=== PATIENT | female | born 1930 | race Caucasian/White ===

== ENCOUNTER 2016-07-13 06:50 | Inpatient (IN) | payer OTHER ==
[~2016-07-13] VITALS: Ht 160 cm; Wt 64.8 kg
[2016-07-13] VITALS (7 sets, daily range): BP systolic 84–121; BP diastolic 51–76
[~2016-07-13 06:50] MED LIST: ANUSOL-HC21 GM PR; ATORVASTATIN CA10 MG PO; CARVEDILOL6.25 MG PO; COLACE100 MG PO; ICAPS MULTIV1 TABLET PO; LISINOPRIL10 MG PO; LO-DOSE ASPIRIN81 M1 PO; MAALOX ADVANCE355 ML PO; MELOXICAM15 MG PO; METHYLPREDNISOLO4 MG PO; NITROSTAT0.4 MG SL; POLYETHYLENE G255 GM PO; stool softener PO
[2016-07-13 07:57] LABS: EOSINOPHIL (%) 0.2 % (0-5); HEMATOCRIT 35.6 % (36.0-46.0); IMMATURE GRANULOCYTE (%) 0.2 % (0.0-0.7); INSTRUMENT ABS NEUTROPHIL CT 8.2 K/uL; LYMPHOCYTE COUNT 1.1 K/uL (1.0-2.8); MCH 29.2 PG (29.0-34.0); MEAN PLAT.VOLUME 10.6 uM^3 (9.5-12.4); MONOCYTE (%) 2.1 % (3-12); MONOCYTE COUNT 0.2 K/uL (0-0.8); NEUTROPHIL (%) 85.8 % (45-76); NEUTROPHIL COUNT 8.2 K/uL (1.8-6.4); PLATELET COUNT 135 K/uL (156-360); RBC DIS.WIDTH-CV 14.2 % (11.8-14.6); RBC DIS.WIDTH-SD 47.3 % (39-53); RED BLOOD COUNT 3.91 M/uL (3.80-5.20)
[2016-07-13 08:00] LABS: WHITE BLOOD COUNT 9.6 K/uL (4.1-10.2)
[2016-07-13 08:11] LABS: ANION GAP 9 MEQ/L (2-14); CHLORIDE 104 MEQ/L (99-109); SAMPLE HEMOLYSIS CHECK 1; SAMPLE ICTERIC CHECK 0; SAMPLE LIPEMIA CHECK 0; SODIUM 139 MEQ/L (136-147); TOTAL BILIRUBIN 0.7 MG/DL (0.0-1.0)
[2016-07-13 08:13] LABS: POTASSIUM 4.6 MEQ/L (3.7-5.4)
[2016-07-13 08:16] LABS: ALKALINE PHOSPHATASE 50 IU/L (3-129); GFR ESTIMATE (CALCULATED) 45 mL/min/; GLUCOSE 161 mg/dL (70-99); LIPASE 26 U/L (1.0-51.0); UREA NITROGEN (BUN) 25 mg/dL (9-23)
[2016-07-13] MEDS ORDERED: COLACE100 MG PO (11:15)
[2016-07-13] MEDS ORDERED: FLUOROURACIL40 GM TP (11:16)
[2016-07-13] MEDS ORDERED: LISINOPRIL20 MG PO (11:17)
[2016-07-13 16:20] LABS: ADD MIUA? YES; BILIRUBIN NEGATIVE; BLOOD NEGATIVE; COLOR YELLOW ((YELLOW)); GLUCOSE (STRIP) >=500; KETONES 5; LEUKOCYTES NEGATIVE; NITRITE NEGATIVE; PROTEIN (STRIP) NEGATIVE; SPECIFIC GRAVITY 1.014 (1.000-1.030); UROBILINOGEN 0.2 MG/DL (0.2-1.0)
[2016-07-13 16:33] LABS: BACTERIA NONE SEEN /HPF; EPITHELIAL CELLS NONE SEEN /HPF; HYALINE CASTS 0-5 /LPF; MUCUS TRACE /LPF; RED BLOOD CELLS 0-5 /HPF (0-5); WHITE BLOOD CELLS 0-5 /HPF (0-5)
[2016-07-13 21:18] LABS: HEMATOCRIT 47.3 % (36.0-46.0)
[2016-07-13 21:29] LABS: MCV 95.2 FL (83-99)
[2016-07-14] VITALS (19 sets, daily range): BP systolic 81–148; BP diastolic 49–73
[2016-07-14 02:16] LABS: CHLORIDE 115 mEq/L (99-109); SODIUM 142 mEq/L (136-147)
[2016-07-14 02:19] LABS: ANION GAP 13 MEQ/L (2-14)
[2016-07-14 02:20] LABS: TOTAL BILIRUBIN 0.4 mg/dL (0.0-1.0)
[2016-07-14 02:22] LABS: ALKALINE PHOSPHATASE 43 IU/L (3-129); GFR ESTIMATE (CALCULATED) 41 mL/min/
[2016-07-14 02:23] LABS: UREA NITROGEN (BUN) 30 mg/dL (9-23)
[2016-07-14 02:24] LABS: EOSINOPHIL (%) 0 % (0-5); IMMATURE GRANULOCYTE (%) 0.9 % (0.0-0.7); IMMATURE GRANULOCYTE COUNT 0.2 K/uL; LYMPHOCYTE COUNT 1.4 K/uL (1.0-2.8); MCH 29.7 PG (29.0-34.0); MCHC 31.4 G/DL (30.0-36.0); MCV 94.6 FL (83-99); MEAN PLAT.VOLUME 11.3 uM^3 (9.5-12.4); MONOCYTE (%) 6.4 % (3-12); MONOCYTE COUNT 1.2 K/uL (0-0.8); NEUTROPHIL (%) 85.2 % (45-76); PLATELET COUNT 161 K/uL (156-360); RBC DIS.WIDTH-CV 14.6 % (11.8-14.6); RBC DIS.WIDTH-SD 50.4 % (39-53)
[2016-07-14 02:26] LABS: RED BLOOD COUNT 5.18 M/uL (3.80-5.20); WHITE BLOOD COUNT 18.8 K/uL (4.1-10.2)
[2016-07-14 02:28] LABS: GLUCOSE 275 mg/dL (70-99); POTASSIUM 5.6 mEq/L (3.7-5.4)
[2016-07-14 06:58] LABS: HEMATOCRIT 47.4 % (36.0-46.0); MCH 28.8 PG (29.0-34.0); MCHC 30.8 G/DL (30.0-36.0); MCV 93.5 FL (83-99); MEAN PLAT.VOLUME 10.8 uM^3 (9.5-12.4); PLATELET COUNT 184 K/uL (156-360); RBC DIS.WIDTH-CV 14.9 % (11.8-14.6); RBC DIS.WIDTH-SD 51.4 % (39-53); RED BLOOD COUNT 5.07 M/uL (3.80-5.20); WHITE BLOOD COUNT 20.1 K/uL (4.1-10.2)
[2016-07-14 07:42] LABS: ANION GAP 11 MEQ/L (2-14); GFR ESTIMATE (CALCULATED) 41 mL/min/; GLUCOSE 187 mg/dL (70-99); POTASSIUM 5.2 MEQ/L (3.7-5.4); SAMPLE HEMOLYSIS CHECK 0; SAMPLE ICTERIC CHECK 0; SAMPLE LIPEMIA CHECK 0; SODIUM 143 MEQ/L (136-147); UREA NITROGEN (BUN) 33 mg/dL (9-23)
[2016-07-14 07:44] LABS: CHLORIDE 118 MEQ/L (99-109)
[2016-07-15 03:37] VITALS: BP 115/50
[2016-07-15 07:27] VITALS: BP 114/55
[2016-07-15 07:35] LABS: HEMATOCRIT 33.8 % (36.0-46.0); MCH 29.2 PG (29.0-34.0); MCHC 31.1 G/DL (30.0-36.0); MCV 93.9 FL (83-99); RBC DIS.WIDTH-SD 51.6 % (39-53); WHITE BLOOD COUNT 13.2 K/uL (4.1-10.2)
[2016-07-15 07:53] LABS: ANION GAP 8 MEQ/L (2-14); CHLORIDE 120 MEQ/L (99-109); GFR ESTIMATE (CALCULATED) 45 mL/min/; GLUCOSE 110 mg/dL (70-99); MAGNESIUM 1.6 mg/dl (1.3-2.7); POTASSIUM 4.7 MEQ/L (3.7-5.4); SAMPLE HEMOLYSIS CHECK 0; SAMPLE ICTERIC CHECK 0; SAMPLE LIPEMIA CHECK 0; SODIUM 146 MEQ/L (136-147); UREA NITROGEN (BUN) 28 mg/dL (9-23)
[2016-07-15 09:59] LABS: MEAN PLAT.VOLUME 10.8 uM^3 (9.5-12.4)
[2016-07-15 10:17] LABS: PLATELET COUNT 96 K/uL (156-360)
[2016-07-15 11:12] VITALS: BP 123/52
[2016-07-15 19:00] VITALS: BP 121/57
[2016-07-15 23:20] VITALS: BP 127/60
[2016-07-16] VITALS (11 sets, daily range): BP systolic 124–152; BP diastolic 58–78
[2016-07-16 06:15] LABS: MCH 29.3 PG (29.0-34.0); MCHC 31.6 G/DL (30.0-36.0); MCV 92.6 FL (83-99); MEAN PLAT.VOLUME 10.9 uM^3 (9.5-12.4); PLATELET COUNT 68 K/uL (156-360); RBC DIS.WIDTH-SD 50.9 % (39-53)
[2016-07-16 06:18] LABS: ANION GAP 7 MEQ/L (2-14); CHLORIDE 118 MEQ/L (99-109); GFR ESTIMATE (CALCULATED) > 59 mL/min/; GLUCOSE 86 mg/dL (70-99); SAMPLE HEMOLYSIS CHECK 0; SAMPLE ICTERIC CHECK 0; SAMPLE LIPEMIA CHECK 0; SODIUM 146 MEQ/L (136-147); UREA NITROGEN (BUN) 18 mg/dL (9-23)
[2016-07-16 06:22] LABS: POTASSIUM 3.6 MEQ/L (3.7-5.4)
[2016-07-16 06:47] LABS: WHITE BLOOD COUNT 7.5 K/uL (4.1-10.2)
[2016-07-17 04:00] VITALS: BP 139/62
[2016-07-17 06:42] LABS: EOSINOPHIL (%) 0.8 % (0-5); EOSINOPHIL COUNT 0.1 K/uL (0-0.3); HEMATOCRIT 28.7 % (36.0-46.0); IMMATURE GRANULOCYTE (%) 0.6 % (0.0-0.7); INSTRUMENT ABS NEUTROPHIL CT 5.1 K/uL; LYMPHOCYTE COUNT 0.8 K/uL (1.0-2.8); MCH 29.2 PG (29.0-34.0); MCHC 32.1 G/DL (30.0-36.0); MCV 91.1 FL (83-99); MEAN PLAT.VOLUME 10.9 uM^3 (9.5-12.4); MONOCYTE (%) 5.7 % (3-12); MONOCYTE COUNT 0.4 K/uL (0-0.8); NEUTROPHIL (%) 80.4 % (45-76); NEUTROPHIL COUNT 5.1 K/uL (1.8-6.4); PLATELET COUNT 72 K/uL (156-360); RBC DIS.WIDTH-CV 14.7 % (11.8-14.6); RBC DIS.WIDTH-SD 49.5 % (39-53); RED BLOOD COUNT 3.15 M/uL (3.80-5.20); WHITE BLOOD COUNT 6.3 K/uL (4.1-10.2)
[2016-07-17 06:59] LABS: ANION GAP 6 MEQ/L (2-14); CHLORIDE 115 MEQ/L (99-109); GFR ESTIMATE (CALCULATED) > 59 mL/min/; GLUCOSE 81 mg/dL (70-99); POTASSIUM 3.8 MEQ/L (3.7-5.4); SAMPLE HEMOLYSIS CHECK 0; SAMPLE ICTERIC CHECK 0; SAMPLE LIPEMIA CHECK 0; SODIUM 146 MEQ/L (136-147); UREA NITROGEN (BUN) 17 mg/dL (9-23)
[2016-07-17 07:57] VITALS: BP 154/67
[2016-07-17 11:23] VITALS: BP 130/64
[2016-07-17 15:36] VITALS: BP 171/77
[2016-07-17 19:00] VITALS: BP 168/74
[2016-07-17 23:10] VITALS: BP 136/68
[2016-07-18 03:00] VITALS: BP 164/77
[2016-07-18 07:37] LABS: MCH 29.3 PG (29.0-34.0); MCV 91.5 FL (83-99); MEAN PLAT.VOLUME 10.9 uM^3 (9.5-12.4); RBC DIS.WIDTH-CV 14.6 % (11.8-14.6); RBC DIS.WIDTH-SD 48.8 % (39-53); RED BLOOD COUNT 3.28 M/uL (3.80-5.20); WHITE BLOOD COUNT 6.1 K/uL (4.1-10.2)
[2016-07-18 07:39] LABS: PLATELET COUNT 95 K/uL (156-360)
[2016-07-18 08:17] VITALS: BP 197/87
[2016-07-18 09:13] LABS: CHLORIDE 114 mEq/L (99-109); POTASSIUM 4.1 mEq/L (3.7-5.4); SODIUM 145 mEq/L (136-147)
[2016-07-18 09:14] LABS: GLUCOSE 71 mg/dL (70-99)
[2016-07-18 09:16] LABS: ANION GAP 9 MEQ/L (2-14)
[2016-07-18 09:18] LABS: GFR ESTIMATE (CALCULATED) > 59 mL/min/
[2016-07-18 09:19] LABS: UREA NITROGEN (BUN) 17 mg/dL (9-23)
[2016-07-18 13:05] VITALS: BP 167/81
[2016-07-18 16:53] VITALS: BP 141/65
[2016-07-18 19:50] VITALS: BP 143/73
[2016-07-18 23:39] VITALS: BP 137/67
[2016-07-19 04:19] VITALS: BP 119/58
[2016-07-19 07:03] VITALS: BP 145/64
[2016-07-19 07:54] LABS: HEMATOCRIT 30.9 % (36.0-46.0); MCH 29.4 PG (29.0-34.0); MCHC 31.7 G/DL (30.0-36.0); MCV 92.8 FL (83-99); MEAN PLAT.VOLUME 10.4 uM^3 (9.5-12.4); PLATELET COUNT 110 K/uL (156-360); RBC DIS.WIDTH-CV 14.3 % (11.8-14.6); RBC DIS.WIDTH-SD 48.3 % (39-53); RED BLOOD COUNT 3.33 M/uL (3.80-5.20); WHITE BLOOD COUNT 5.4 K/uL (4.1-10.2)
[2016-07-19 08:05] LABS: ANION GAP 7 MEQ/L (2-14); CHLORIDE 111 MEQ/L (99-109); GFR ESTIMATE (CALCULATED) > 59 mL/min/; GLUCOSE 87 mg/dL (70-99); POTASSIUM 3.6 MEQ/L (3.7-5.4); SAMPLE HEMOLYSIS CHECK 0; SAMPLE ICTERIC CHECK 0; SAMPLE LIPEMIA CHECK 0; SODIUM 145 MEQ/L (136-147); UREA NITROGEN (BUN) 13 mg/dL (9-23)
[2016-07-19 12:00] VITALS: BP 150/59
[2016-07-19 16:17] VITALS: BP 133/61
[2016-07-19 18:00] VITALS: BP 174/77
[2016-07-19 20:38] VITALS: BP 144/68
[2016-07-20 00:50] VITALS: BP 118/62
[2016-07-20 04:37] VITALS: BP 118/72
[2016-07-20 06:07] LABS: EOSINOPHIL (%) 3.4 % (0-5); EOSINOPHIL COUNT 0.2 K/uL (0-0.3); HEMATOCRIT 29.5 % (36.0-46.0); IMMATURE GRANULOCYTE (%) 0.4 % (0.0-0.7); MCH 29.6 PG (29.0-34.0); MCHC 31.9 G/DL (30.0-36.0); MCV 92.8 FL (83-99); MEAN PLAT.VOLUME 10.4 uM^3 (9.5-12.4); MONOCYTE (%) 7.4 % (3-12); MONOCYTE COUNT 0.4 K/uL (0-0.8); NEUTROPHIL (%) 70.8 % (45-76); PLATELET COUNT 118 K/uL (156-360); RBC DIS.WIDTH-CV 14.3 % (11.8-14.6); RBC DIS.WIDTH-SD 48.7 % (39-53); RED BLOOD COUNT 3.18 M/uL (3.80-5.20); WHITE BLOOD COUNT 5.6 K/uL (4.1-10.2)
[2016-07-20 06:37] LABS: ANION GAP 4 MEQ/L (2-14); CHLORIDE 110 MEQ/L (99-109); GFR ESTIMATE (CALCULATED) > 59 mL/min/; GLUCOSE 87 mg/dL (70-99); POTASSIUM 4.3 MEQ/L (3.7-5.4); SAMPLE HEMOLYSIS CHECK 0; SAMPLE ICTERIC CHECK 0; SAMPLE LIPEMIA CHECK 0; SODIUM 144 MEQ/L (136-147); UREA NITROGEN (BUN) 8 mg/dL (9-23)
[2016-07-20 07:45] VITALS: BP 120/75
[2016-07-20 11:39] VITALS: BP 129/59
[2016-07-20 15:46] VITALS: BP 151/65
[2016-07-20 19:30] VITALS: BP 152/68
[2016-07-21] VITALS (7 sets, daily range): BP systolic 118–142; BP diastolic 56–76
[2016-07-21 07:09] LABS: EOSINOPHIL (%) 2.4 % (0-5); EOSINOPHIL COUNT 0.2 K/uL (0-0.3); IMMATURE GRANULOCYTE (%) 0.6 % (0.0-0.7); INSTRUMENT ABS NEUTROPHIL CT 5.2 K/uL; LYMPHOCYTE COUNT 1.1 K/uL (1.0-2.8); MCH 29.6 PG (29.0-34.0); MCHC 32.5 G/DL (30.0-36.0); MCV 91.2 FL (83-99); MEAN PLAT.VOLUME 10.5 uM^3 (9.5-12.4); MONOCYTE (%) 6.5 % (3-12); MONOCYTE COUNT 0.5 K/uL (0-0.8); NEUTROPHIL (%) 74.4 % (45-76); NEUTROPHIL COUNT 5.2 K/uL (1.8-6.4); PLATELET COUNT 129 K/uL (156-360); RBC DIS.WIDTH-CV 14.3 % (11.8-14.6); RBC DIS.WIDTH-SD 47.5 % (39-53); RED BLOOD COUNT 3.51 M/uL (3.80-5.20); WHITE BLOOD COUNT 7.1 K/uL (4.1-10.2)
[2016-07-21 07:26] LABS: ANION GAP 7 MEQ/L (2-14); CHLORIDE 111 MEQ/L (99-109); GFR ESTIMATE (CALCULATED) > 59 mL/min/; GLUCOSE 94 mg/dL (70-99); POTASSIUM 3.5 MEQ/L (3.7-5.4); SAMPLE HEMOLYSIS CHECK 0; SAMPLE ICTERIC CHECK 0; SAMPLE LIPEMIA CHECK 0; SODIUM 143 MEQ/L (136-147); UREA NITROGEN (BUN) 5 mg/dL (9-23)
[2016-07-22 03:55] VITALS: BP 147/70
[2016-07-22 06:20] LABS: EOSINOPHIL (%) 2.5 % (0-5); EOSINOPHIL COUNT 0.2 K/uL (0-0.3); HEMATOCRIT 29.4 % (36.0-46.0); IMMATURE GRANULOCYTE (%) 0.6 % (0.0-0.7); INSTRUMENT ABS NEUTROPHIL CT 4.7 K/uL; LYMPHOCYTE COUNT 1.2 K/uL (1.0-2.8); MCH 29.2 PG (29.0-34.0); MCHC 31.6 G/DL (30.0-36.0); MCV 92.5 FL (83-99); MEAN PLAT.VOLUME 10.6 uM^3 (9.5-12.4); MONOCYTE (%) 6.2 % (3-12); MONOCYTE COUNT 0.4 K/uL (0-0.8); NEUTROPHIL (%) 72.6 % (45-76); NEUTROPHIL COUNT 4.7 K/uL (1.8-6.4); PLATELET COUNT 133 K/uL (156-360); RBC DIS.WIDTH-CV 14.2 % (11.8-14.6); RBC DIS.WIDTH-SD 47.8 % (39-53); RED BLOOD COUNT 3.18 M/uL (3.80-5.20); WHITE BLOOD COUNT 6.5 K/uL (4.1-10.2)
[2016-07-22 06:45] LABS: ANION GAP 5 MEQ/L (2-14); CHLORIDE 109 MEQ/L (99-109); GFR ESTIMATE (CALCULATED) > 59 mL/min/; GLUCOSE 86 mg/dL (70-99); POTASSIUM 3.6 MEQ/L (3.7-5.4); SAMPLE HEMOLYSIS CHECK 0; SAMPLE ICTERIC CHECK 0; SAMPLE LIPEMIA CHECK 0; SODIUM 145 MEQ/L (136-147); UREA NITROGEN (BUN) 5 mg/dL (9-23)
[2016-07-22 07:58] VITALS: BP 162/70
[2016-07-22 11:45] VITALS: BP 128/60
[2016-07-22] MEDS ORDERED: TYLENOL REGULA325 MG PO (14:47)
[2016-07-22] MEDS ORDERED: ELIQUIS5 MG PO ×3 (14:56→15:23)
== END 2016-07-22 16:10 | disposition home health service (06) | DRG 336 ==
LOC: EME → EDBD 06:50 → EDOF 10:36 → 4EAST 10:36 → EDOF 11:07 → 4EAST 16:46 → 4SOUTH 07-19 17:59
PROVIDERS: Emergency Medicine; Internal Medicine; Physician Assistant; Student in an Organized Health Care Education/Training Program; Thoracic Surgery (Cardiothoracic Vascular Surgery)
PROC: 0DN80ZZ Release Small Intestine, Open Approach (ICD-10-PCS; principal; 2016-07-14)
PROC: 30233N1 Transfusion of Nonautologous Red Blood Cells into Peripheral Vein, Percutaneous Approach (ICD-10-PCS; 2016-07-16)
DX: K56.5 Intestinal adhesions [bands] with obstruction (postinfection) (principal); R18.8 Other ascites; D62 Acute posthemorrhagic anemia; I82.621 Acute embolism and thrombosis of deep veins of right upper extremity; D69.49 Other primary thrombocytopenia; I80.8 Phlebitis and thrombophlebitis of other sites; K56.2 Volvulus; I71.2 Thoracic aortic aneurysm, without rupture; I95.9 Hypotension, unspecified; I10 Essential (primary) hypertension; I25.10 Atherosclerotic heart disease of native coronary artery without angina pectoris; E78.5 Hyperlipidemia, unspecified; D72.819 Decreased white blood cell count, unspecified
CPT/HCPCS: 71010; 74176; 74177; 80048; 80053; 81003; 83605; 83690; 83735; 84100; 85014; 85018; 85025; 85027; 86850; 86870; 86900; 86901; 86905; 86920; 87040; 93005; 93971; 94640; 94799; 97530 GO; 97530 GP; 99281; 99285; J0131; J0696; J1170; J1644; J1650; J1940; J2270; J2405; J2543; J3010; J3370; J7030; J7040; J7042; J7050; J7120; P9016; P9045; S0028